=== PATIENT | male | born 1965 | race Caucasian/White ===

== ENCOUNTER 2018-03-31 19:31 | Inpatient (IN) | payer SELFPAY ==
[2018-03-31] MEDS ORDERED: Ticagrelor* 90 MG TAB PO ONE (19:49)
[2018-03-31] MEDS ORDERED: Aspirin 81 mg CHEW TAB* 81 MG TAB.CHEW PO ONE (19:49)
[2018-03-31] MEDS ORDERED: Heparin for STEMI(*) 5,000 UNITS/ML 1 ML VIAL IV ONE (19:49)
--- NOTE | 2018-03-31 19:52 | ED ---
HPI Chest Pain - HPI Summary HPI Summary: The pt is a 30 y/o male presenting to [facility] c/o of upper CP for the last 1 month worsened today afternoon while he was mowing the lawn. The CP rated 2/10 radiates to the neck and head. He notes diaphoresis, SOB, dyspnea, nausea and headaches. The pain is alleviated by sitting and aggravated by lying down. He has not been seen by his PCP for the sx. A STEMI alert was called at 194 and an ABC alert at 2000. - History of Current Complaint Chief Complaint: EDChestPainROMI Hx Obtained From: Patient, Family/Air/Ocean Export Clerk Onset/Duration: Started Weeks Ago - 4 weeks, Still Present, Worse Since - Today afternoon Timing: Intermittent Current Severity: Mild Pain Intensity: 2 Pain Scale Used: 0-10 Numeric Chest Pain Radiates: Yes Chest Pain Radiates To:: Neck, Other - Head Aggravating Factor(s): Other: - Lying down Alleviating Factor(s): Position - Sitting Associated Signs and Symptoms: Positive: Chest Pain, Headaches, Shortness of Breath, Diaphoresis, Nausea - Allergy/Home Medications Allergies/Adverse Reactions: Allergies Allergy/AdvReac Type Severity Reaction Status Date / Time Penicillins Allergy Rash Verified 03/31/18 19:37 PMH/Surg Hx/FS Hx/Imm Hx Previously Healthy: No Cardiovascular History: Reports: Hx Hypertension Denies: Hx Myocardial Infarction Musculoskeletal History: Reports: Hx Arthritis, Hx Back Problems, Hx Orthopedic Injury - shoulder Neurological History: Reports: Other Neuro Impairments/Disorders - PAIN CLINIC PATIENT - Surgical History Surgery Procedure, Year, and Place: right shoulder surgery x2 Infectious Disease History: No Infectious Disease History: Denies: Traveled Outside the [place] in Last 30 Days - Family History Known Family History: Positive: Cardiac Disease - Mother - Social History Occupation: Employed Full-time Lives: With Family Alcohol Use: Weekly Alcohol Amount: 6-10 drinks/week Substance Use Type: Reports: None Smoking Status (MU): Current Every Day Smoker Type: Cigarettes Amount Used/How Often: 1 1/2 PPD Review of Systems Positive: Skin Diaphoresis Positive: Chest Pain Respiratory: Other - Positive: Dyspnea Positive: Shortness Of Breath Positive: Nausea Positive: Headache All Other Systems Reviewed And Are Negative: Yes Physical Exam - Summary Physical Exam Summary: Appearance: The patient is well-nourished in no acute distress and in no acute pain. Skin: The pt is mildly diaphoretic, warm and dry. Skin color reflects adequate perfusion. HEENT: The head is normocephalic and atraumatic. The pupils are equal and reactive. The conjunctivae are clear and without drainage. Nares are patent and without drainage. Mouth reveals moist mucous membranes and the throat is without erythema and exudate. The external ears are intact. The ear canals are patent and without drainage. The tympanic membranes are intact. Neck: The neck is supple with full range of motion and non-tender. There are no carotid bruits. There is no neck vein distension. Respiratory: Chest is non-tender. Lungs are clear to auscultation and breath sounds are symmetrical and equal. Cardiovascular: Heart is regular rate and rhythm. There is no murmur or rub auscultated. There is no peripheral edema and pulses are symmetrical and equal. Abdomen: The abdomen is soft and non-tender. There are normal bowel sounds heard in all four quadrants and there is no organomegaly palpated. Musculoskeletal: There is no back tenderness noted. Extremities are non-tender with full range of motion. There is good capillary refill. There is no peripheral edema or calf tenderness elicited. Neurological: Patient is alert and oriented to person, place and time. The patient has symmetrical motor strength in all four extremities. Cranial nerves are grossly intact. Deep tendon reflexes are symmetrical and equal in all four extremities. Triage Information Reviewed: Yes Vital Signs On Initial Exam: Initial Vitals Temp Pulse Resp BP Pulse Ox 98.4 F 94 20 172/89 96 03/31/18 19:33 03/31/18 19:33 03/31/18 19:33 03/31/18 19:33 03/31/18 19:33 Vital Signs Reviewed: Yes Diagnostics - Vital Signs Vital Signs Temp Pulse Resp BP Pulse Ox 03/31/18 19:33 98.4 F 94 20 172/89 96 - Laboratory Result Diagrams: 03/31/18 19:50 03/31/18 19:50 Lab Statement: Any lab studies that have been ordered have been reviewed, and results considered in the medical decision making process. - Radiology CXR Radiology Interpretation Completed By: ED Physician - IMPRESSION: Atelectasis in the base of the R lung - EKG 19:38 Cardiac Rate: NL - 92 bpm EKG Interpretation: Acute inferior HI with reciprocal posterior septal changes Chest Pain Course/Dx - Course Course Of Treatment: Mr. Multani presented to the emergency department with about a half an hour of chest pain which he described as a discomfort. He was brought back to the sub-waiting room and an EKG was obtained and shown to me. His EKG showed an acute inferior STEMI, I interviewed him in the sub-waiting room and called a STEMI alert. He was mildly diaphoretic, smelled of tobacco and looked uncomfortable clutching his chest. He was brought back immediately to room 14 and placed on the monitor and was administered heparin, aspirin and noted to have frequent ectopy on the monitor. Brlynta was also ordered for him but he went into the tach and then coarse V. fib which had a torsades appearance prior to giving it. He was immediately shocked back into a sinus rhythm with frequent PVCs essentially bigeminy and while amiodarone was being administered he went into dysrhythmia again. He again responded to defibrillation and then stayed and initially a tachycardic bigeminal rhythm and the ectopy eventually went away. He was also loaded with magnesium. Dr. brandt came and took him to the [facility]. His initial troponin returned at 0.07. - Diagnoses Provider Diagnoses: Cardiac arrest, STEMI (ST elevation myocardial infarction) During the Visit The Following Alert/Code Occurred: STEMI - At 194, ABC Alert - At 2000 - Provider Notifications Discussed Care Of Patient With: Moises Pierson - Time Study Analyst Time Discussed With Above Provider: 19:50 Instructed by Provider To: MD Will See In ED - Also discussed the care of the pt with the hospitalist who agreed to admit the pt. - Critical Care Time Critical Care Time: 30-74 min Discharge - Sign-Out/Discharge Documenting (check all that apply): Patient Departure - Admit - Discharge Plan Condition: Guarded Disposition: ADMITTED TO [facility] - Billing Disposition and Condition Condition: GUARDED Disposition: Admitted to [facility] - Attestation Statements Document Initiated by Scribe: Yes Documenting Scribe: Tricia Navarro Provider For Whom Scribe is Documenting (Include Credential): Dr. Armani Marrero MD Scribe Attestation: Tricia Kelly, scribed for Dr. Armani Marrero MD on 03/31/18 at 2153. Scribe Documentation Reviewed: Yes Provider Attestation: The documentation as recorded by the scribe, Tricia Navarro accurately reflects the service I personally performed and the decisions made by me, Dr. Armani Marrero MD
[2018-03-31 20:02] LABS: ABS Basophils 0.1 10^3/ul (0-0.2); ABS Eosinophils 0.1 10^3/ul (0-0.6); ABS Lymphocytes 3.3 10^3/ul (1.0-4.8); ABS Monocytes 0.9 10^3/ul (0-0.8); ABS Neutrophils 5.8 10^3/ul (1.5-7.7); ABS Nucleated RBC 0 10^3/ul; Eosinophil % 1.1 % (0-6); Hematocrit 43 % (42-52); Lymphocyte % 32.6 % (25-47); Mean Corpuscular HGB Conc 35 g/dl (31-36); Mean Corpuscular Hemoglobin 34 pg (27-31); Mean Corpuscular Volume 96 fL (80-94); Mean Platelet Volume 7.1 um3 (7.4-10.4); Nucleated Red Blood Cells % 0.1; Platelet Count 301 10^3/ul (150-450); Red Blood Count 4.47 10^6/ul (4.00-5.40); Red Cell Distribution Width 13 % (10.5-15); White Blood Count 10.2 10^3/ul (3.5-10.8)
[2018-03-31] MEDS ORDERED: Magnesium Sulfate 2 GM IV* 2 GM/50 ML BAG ONE ×2 (20:07→20:11)
[2018-03-31 20:12] LABS: INR 0.83 (0.77-1.02)
[2018-03-31] MEDS ORDERED: Magnesium Sulfate 2 GM IV* 2 GM/50 ML BAG IVPB ONE (20:13)
[2018-03-31] MEDS ORDERED: Amiodarone 150 MG IVPREMIX* 150 MG/100 ML BAG IV ONE (20:16)
[2018-03-31 20:20] LABS: EGFR Non-African American 108.1 (>60)
[2018-03-31] MEDS ORDERED: Heparin 2 UNITS/ML IVPREMIX* 2,000 ML IV ONE (20:22)
[2018-03-31] MEDS ORDERED: Heparin(*) 1000 UNIT/ML 10 ML VIAL CATH LAB IV ONE (20:22)
[2018-03-31] MEDS ORDERED: nitroGLYCERIN DRIP* 25,000 MCG/250 ML BTL ONE (20:22)
[2018-03-31] MEDS ORDERED: VERAPAMIL 2.5 MG/ML 2 ML VIAL ** 5 mg/2 ml ONE (20:22)
[2018-03-31] MEDS ORDERED: Lidocaine 1% INJ* 10 MG/ML 30 ML SDV ONE (20:22)
[2018-03-31] MEDS: Amiodarone 150 MG IVPREMIX* 150 MG/100 ML BAG IV ONE ×2 (20:23→22:35)
[2018-03-31] MEDS ORDERED: Iohexol 350 (CONTRAST) 200 ML MDV IV ONE (20:25)
[2018-03-31] MEDS ORDERED: Morphine INJ** 4 MG/ML 1 ML CARPUJECT IV ONE (20:33)
[2018-03-31] MEDS ORDERED: Morphine INJ* 4 MG/ML 1 ML SYRINGE (NEW SYRINGE VERSION) ONE (20:36)
[2018-03-31] MEDS ORDERED: Morphine INJ* 4 MG/ML 1 ML SYRINGE (NEW SYRINGE VERSION) IV ONE (20:37)
[2018-03-31] MEDS ORDERED: fentaNYL* 50 MCG/ML 2 ML VIAL (100 MCG VIAL) ONE ×2 (20:54→21:19)
[2018-03-31] MEDS ORDERED: Midazolam* 1 MG/ML 10 ML VIAL (10 MG) ONE (20:55)
[2018-03-31] MEDS ORDERED: Nitroglycerin TAB 0.4 MG* 0.4 MG TAB SL PRN (21:49)
[2018-03-31] MEDS ORDERED: NS 0.9% 1000 ML* 400 ML IV SCH (22:00)
[2018-03-31] MEDS: Atorvastatin* 80 MG TAB PO SCH (22:23)
[2018-03-31] MEDS: Metoprolol Tartrate TAB* 25 MG PO SCH (22:23)
[2018-03-31] MEDS: Acetaminophen TAB* 325 MG PO PRN (22:24)
[2018-03-31] MEDS: Ticagrelor* 90 MG TAB PO SCH (22:24)
[2018-03-31] MEDS: Nicotine PATCH 21 MG/24 HR* PATCH TRANSDERM SCH (22:24)
[2018-03-31] MEDS ORDERED: Amiodarone DRIP* 1.8 MG/ML 200 ML IV SCH (23:30)
[2018-04-01] MEDS: Acetaminophen TAB* 325 MG PO PRN (03:53)
[2018-04-01 05:05] LABS: EGFR Non-African American 134.7 (>60)
[2018-04-01] MEDS: Metoprolol Tartrate TAB* 25 MG PO SCH ×3 (05:23→20:53)
[2018-04-01] MEDS ORDERED: Furosemide IV* 10 MG/ML 2 ML VIAL (20 MG) IV ONE ×2 (06:45→16:00)
[2018-04-01] MEDS ORDERED: Furosemide IV* 10 MG/ML 2 ML VIAL (20 MG) ONE (06:59)
--- NOTE | 2018-04-01 07:46 | RAD ---
HISTORY: CP COMPARISONS: September 25, 2014 VIEWS: 1: frontal AP view of the chest at 8:16 PM FINDINGS: LINES AND TUBES: None. CARDIOMEDIASTINAL SILHOUETTE: The cardiac silhouette is at the upper limits of normal in size. PLEURA: The costophrenic angles are sharp. No pleural abnormalities are noted. LUNG PARENCHYMA: There is patchy alveolar opacification of the right lung base. There is prominence of the central pulmonary vasculature. ABDOMEN: The upper abdomen is clear. There is no subphrenic gas. BONES AND SOFT TISSUES: No bone or soft tissue abnormalities are noted. IMPRESSION: 1. PULMONARY VASCULAR CONGESTION. 2. PATCHY RIGHT BASILAR ATELECTASIS VERSUS EARLY CONSOLIDATION. R2
--- NOTE | 2018-04-01 08:50 | PN ---
Subjective Date of Service: 04/01/18 - f/u s/p Inferoposterior STEMI Interval History: 53 year old who presented to [facility] last evening around 1999 after having 45 min episode of chest discomfort described at " ball in throat" with associated diaphoresis and nausea. Apparently for the past month he has been having accelerating symptoms historically provoked with exertion however for the past couple of days occurring at rest. A STEMI and ABC alert was called. He had refractory VT/VF requiring CPR And two rounds of defibrillation. HE had successful ROSC and was given IV amiodarone and taken urgently to the culture media laboratory assistant where he had successful KYLIE x1 to PL of Lcx with residual 60% RCA lesion that is being medically treated. LV gram revealed LVEF 55%. He was admitted to the cardiac ICU and monitored overnight. HE denies further c/o chest pain, nausea or diaphoresis. However this morning was experiencing dyspnea subsequently was given IV Lasix. He reports improvement in dyspnea and + urinary output. Of note he is c/o sternal chest pain that is tender to touch. No events on telemetry last night. Medications Active Medications: Acetaminophen (Tylenol Tab*) 650 mg PO Q4H PRN PRN Reason: HEADACHE/PAIN Last Admin: 04/01/18 03:53 Dose: 650 mg Aspirin (Aspirin 81 Mg Chew Tab*) 81 mg PO DAILY [facility] Atorvastatin Calcium (Lipitor*) 80 mg PO 1700 [facility] Last Admin: 03/31/18 22:23 Dose: 80 mg Amiodarone HCl (Nexterone 360 Mg/200 Ml Ivpremix*) 360 mg in 200 mls @ 33.333 mls/hr IV .PER RATE [facility]; Protocol Last Admin: 04/01/18 00:36 Dose: 33.333 mls/hr Metoprolol Tartrate (Lopressor Tab*) 25 mg PO Q8H [facility] Last Admin: 04/01/18 05:23 Dose: 25 mg Nicotine (Nicotine Patch 21 Mg/24 Hr*) 1 patch TRANSDERM DAILY [facility] Last Admin: 03/31/18 22:24 Dose: 1 patch Nitroglycerin (Nitroglycerin Tab 0.4 Mg*) 0.4 mg SL Q5M PRN PRN Reason: ANGINA Pneumococcal Polyvalent Vaccine (Pneumococcal Vac 23-Polyvalent*) 0.5 ml IM .ONCE ONE Stop: 04/01/18 09:01 Ticagrelor (Brilinta*) 90 mg PO BID CARLA Last Admin: 03/31/18 22:24 Dose: 90 mg Objective Vital Signs: Temp Pulse Resp BP Pulse Ox 96.6 F 66 18 120/75 97 03/31/18 22:11 04/01/18 08:00 04/01/18 08:00 04/01/18 08:00 04/01/18 08:00 Oxygen Devices in Use Now: Nasal Cannula Appearance: well nourished, well kept. NAD, A+O x3 Eyes: No Scleral Icterus, PERRLA Ears/Nose/Mouth/Throat: NL Teeth, Lips, Gums, Clear Oropharnyx, Mucous Membranes Moist Neck: NL Appearance and Movements; NL JVP, Trachea Midline, No Thyroid Enlargement, Masses Respiratory: Symmetrical Chest Expansion and Respiratory Effort, - - + inspiratory crackles in right lower lobe Cardiovascular: NL Sounds; No Murmurs; No JVD, RRR - no gallop or rub, No Edema Abdominal: No Hepatosplenomegaly, - - bowel sounds are active X4, abdomen is distended non tender. Extremities: No Edema - 2+ right radial pulse palpated. cap refill < 3 seconds. TR band in place Skin: No Rash or Ulcers Neurological: Alert and Oriented x 3, NL Muscle Strength and Tone Lines/Tubes/Other Access: Clean, Dry and Intact Peripheral IV - left and right AC., Clean, Dry and Intact Other Access - TR band in place right radial access( per nurse deflated) Laboratory Results: 03/31/18 19:50 04/01/18 03:50 INR (Anticoag Therapy) 0.83 (0.77-1.02) 03/31/18 19:50 APTT 28.5 seconds (26.0-36.3) 03/31/18 19:50 Total Bilirubin 0.40 mg/dL (0.2-1.0) 03/31/18 19:50 AST 28 U/L (13-39) 03/31/18 19:50 ALT 37 U/L (7-52) 03/31/18 19:50 Alkaline Phosphatase 96 U/L (34-104) 03/31/18 19:50 CK-MB (CK-2) 245.0 ng/mL (0.6-6.3) H 04/01/18 03:50 B-Natriuretic Peptide 19 pg/mL (-100) 03/31/18 19:50 Total Protein 7.1 g/dL (6.4-8.9) 03/31/18 19:50 Albumin 4.6 g/dL (3.2-5.2) 03/31/18 19:50 Globulin 2.5 g/dL (2-4) 03/31/18 19:50 Albumin/Globulin Ratio 1.8 (1-3) 03/31/18 19:50 Triglycerides 707 mg/dL 03/31/18 19:50 Cholesterol 260 mg/dL 03/31/18 19:50 LDL Cholesterol mg/dL 03/31/18 19:50 HDL Cholesterol 40.7 mg/dL 03/31/18 19:50 03/31/18 19:50 Troponin I 0.07 H* Diagnostic Imaging: Telemetry was reviewed. NSR rates 60-70's no pauses, ventricular ectopy or arrhythmias overnight. This mornings EKG is pending. EKG Data: todays is pending. Assessment/Plan 1. S/P Acute Inferoposterior STEMI s/p successful DESX1 to PL branch of Lcx with known residual 60% RCA lesion. LVEF 55%. No recurrent c/o angina. On ASA 81mg/day, Lipitor 80mg PO QHS, Brilinta 90mg PO BID and Lopressor 25mg PO TID. Will consult social work for medication and insurance assistance. Check echo today. He will need 1 year of DAPT uninterrupted given STEMI presentation. 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 Will continue gentle diuresis with lasix 20mg IV BID given dyspnea and + crackles on lower bases. 2. s/p Cardiac Arrest; due to above #1; Per ED report patient had VT, fine VF had 5 minutes of CPR followed by defibrillation x2. and was on IV Amio. he underwent successful revascularization with no further arrhythmias on telemetry. given reproducible sternal chest pain with palpation. LVEF 55% does not need lifevest. 3. Hyperlipdemia; On Lipitor 80mg PO QHS. I discussed in great detail with patient about the importance of reducing ETOH intake and monitoring carb and sugar intake given elevated triglycerides. HE will need repeat panel in 6-8 weeks time for further evaluation. 4. On going tobacco abuse; reports consuming 2+ PPD for the past 40 years. I educated patient and partner on the importance of smoking cessation for overall cardiovascular benefits. 5. Alcoholism; Patient reports consuming 7-8 beers a day and "social" shots of [place]equ[place]. There is no clinical evidence of DT. HR is 60-70. HE is to f/u with PCP Dr. Aabrca to discuss how to safely stop drinking. 6. Disposition; pending course patient is full code. Will discuss with Dr. Pierson about possibly transferring patient to telemetry floor later today. Attending: Moises Pierson
[2018-04-01] MEDS ORDERED: Pneumococcal *Vac Polyvalent 0.5 ML VIAL IM ONE (09:00)
[2018-04-01] MEDS ORDERED: Perflutren Lipid Microsphere* 3 ML VIAL ONE (09:53)
[2018-04-01] MEDS: Ticagrelor* 90 MG TAB PO SCH ×2 (10:30→20:53)
[2018-04-01] MEDS: Aspirin 81 mg CHEW TAB* 81 MG TAB.CHEW PO SCH (10:30)
[2018-04-01] MEDS: Nicotine PATCH 21 MG/24 HR* PATCH TRANSDERM SCH (10:36)
--- NOTE | 2018-04-01 11:19 | ECHO ---
Patient: MERVAT PEREZ [facility] Rec#: [id number] : 1965 Date: 04/01/2018 Age: 53y Height: 180 cm / 70.9 in Weight: 105.2 kg / 231.9 lbs Sex: M BSA: 2.24 Room#: [facility] Admit Date#: 03/31/2018 Type: Inpatient Referring: Monalisa Cannon Reading: Yakov Noel MD Insurance Agency Manager: Vani Ambriz RDCS CC: Viktor Abarca MD Transthoracic Echocardiogram Indication: Myocardial Infarction. BP: 120/75 HR: 61 Rhythm: NSR Findings History: Smoker, HTN, acute inferior SD 03/31/18. Technical Comments: The study is technically limited due to poor acoustic windows. Completed at 1040. Left Ventricle: The left ventricular chamber size is normal. Mild to moderate concentric left ventricular hypertrophy is observed. There is a focal wall motion abnormality present. There is mildly decreased left ventricular systolic function. The estimated ejection fraction is 45-50%. There is no consistent Doppler evidence of clinically significant diastolic dysfunction. The mid anterolateral, mid inferolateral, apical lateral, and apical inferior wall segments are hypokinetic (score 2). Overall wallmotion score index is 2.00 Left Atrium: The left atrium is mildly dilated. Right Ventricle: Moderator Band present. The right ventricular cavity size is normal. The right ventricular global systolic function is low normal. Right Atrium: The right atrium is mildly dilated. Aortic Valve: The aortic valve is trileaflet. The aortic valve leaflets are mildly thickened. There is a trace of aortic regurgitation. There is no evidence of aortic stenosis. Mitral Valve: The mitral valve leaflets are mildly thickened. There is trace to mild mitral regurgitation. There is no evidence of mitral stenosis. Tricuspid Valve: The tricuspid valve leaflets are normal. There is trace tricuspid regurgitation. Unable to estimate the right ventricular systolic pressure. There is no tricuspid stenosis. Pulmonic Valve: The pulmonic valve appears normal. There is a trace pulmonic regurgitation. There is no pulmonic stenosis. Pericardium: There is no significant pericardial effusion. A pericardial fat pad is visualized. Aorta: There is no dilatation of the ascending aorta. There is no dilatation of the aortic arch. The aortic root is normal in size. Pulmonary Artery: The main pulmonary artery is not well visualized. Venous: The inferior vena cava is dilated. There is a greater than 50% respiratory change in the inferior vena cava dimension. Contrast: Definity was used to optimize study. 3.5 mL of diluted Difinity were utilized. Intravenous contrast was used to enhance endocardial border definition. Summary: There was not any prior study for comparison. Conclusions Mild to moderate concentric left ventricular hypertrophy is observed. There is mildly decreased left ventricular systolic function. The estimated ejection fraction is 45-50%. The mid anterolateral, mid inferolateral, apical lateral, and apical inferior wall segments are hypokinetic (score 2). The right ventricular global systolic function is low normal. There is a trace of aortic regurgitation. There is trace to mild mitral regurgitation. There is trace tricuspid regurgitation. Unable to estimate the right ventricular systolic pressure. There is no significant pericardial effusion. Measurements Name Value Normal Range RVIDd (AP) 2D 3.1 cm (0.9 - 2.6) RVDdMajor (2D) 3.9 cm (2.2 - 4.4) RAd ISD 4CH 5.3 cm (3.4 - 4.9) RA (A4C)W 4.9 cm (2.9 - 4.6) IVSd (2D) 1.3 cm (0.6 - 1) LVPWd (2D) 1.3 cm (0.6 - 1) LVIDd (2D) 4.6 cm (3.6 - 5.4) LVIDs (2D) 3.5 cm - LV FS (2D) 24 % (25 - 45) Aortic Annulus 1.8 cm (1.4 - 2.6) Ao root diameter (2D) 3 cm (2.1 - 3.5) Ascending Ao 3.3 cm (2.1 - 3.4) Aortic arch 2.4 cm (1.8 - 3.4) LA dimension (AP) 2D 3.9 cm (2.3 - 3.8) LAd ISD 4CH 5.5 cm (2.9 - 5.3) LA ISD 4CH W 4.5 cm (2.5 - 4.5) Name Value Normal Range LA ESV BP (A/L) index 31 ml/m2 - Name Value Normal Range MV E-wave Vmax 1.1 m/sec - MV deceleration time 180 msec - MV A-wave Vmax 0.6 m/sec - LV septal e' Vmax 0.08 m/sec - LV lateral e' Vmax 0.09 m/sec - LV E:e' septal ratio 13.75 ratio - LV E:e' lateral ratio 12.22 ratio - Name Value Normal Range AV Vmax 1.3 m/sec - AV VTI 25 cm - AV peak gradient 7 mmHg - AV mean gradient 3 mmHg - LVOT Vmax 1.2 m/sec - LVOT VTI 23.4 cm - LVOT peak gradient 6 mmHg - LVOT mean gradient 2 mmHg - JACKSON Vmax 1 m/sec - Name Value Normal Range IVC diameter 2.4 cm - Name Value Normal Range PV Vmax 0.8 m/sec - PV peak gradient 3 mmHg - Wallmotion BAS Not Seen BA Not Seen BAL Not Seen ALAN Not Seen BI Not Seen BIS Not Seen MAS Not Seen MA Not Seen MAL Hypokinetic MIL Hypokinetic SD Not Seen MIS Not Seen Not Seen AA Not Seen AL Hypokinetic AI Hypokinetic APEX Not Seen
[2018-04-01] MEDS ORDERED: Ibuprofen TAB* 400 MG PO PRN (16:20)
[2018-04-01] MEDS: Famotidine TAB* 20 MG PO SCH (17:02)
[2018-04-01] MEDS: Atorvastatin* 80 MG TAB PO SCH (17:02)
[2018-04-01] MEDS: Metoprolol Tartrate TAB* 100 MG TAB PO SCH (20:53)
--- NOTE | 2018-04-01 21:06 | HP ---
CC: Dr. Abarca * HISTORY AND PHYSICAL: DATE OF ADMISSION: 03/31/18 PRIMARY CARE PHYSICIAN: Dr. Abarca. HISTORY OF PRESENT ILLNESS: A 53-year-old male with history of hypertension presenting to the ER with inferior wall ST elevation infarct. He has no previous cardiac history. For the past month, he has had fairly typical angina, culminating in class 4 angina with rest pain, some episodes lasted up to an hour. He did not seek medical attention. On the day of admission, he had the onset of severe chest pain radiating into both arms and up into his neck and the side of his face accompanied by profuse diaphoresis. He presented to the ER where EKG at [address] elevation with reciprocal ST depression in V1 through V3. In the ER, he had VF arrest and required brief CPR and defibrillation with zoroastrian of spontaneous rhythm. He was then brought emergently to the analytical lab technician, still complaining of moderate chest discomfort. He has no history of heart failure symptoms, palpitations, or syncope. PAST MEDICAL HISTORY: Hypertension, on Norvasc. PRE-HOSPITAL MEDICATIONS: 1. Ibuprofen. 2. Norvasc. ALLERGIES: None to medications. FAMILY HISTORY: Positive for premature coronary artery disease. SOCIAL HISTORY: He is a 2-pack per day smoker. He is . REVIEW OF SYSTEMS: General: No weight loss. No fevers. 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 GI: No history of peptic ulcer disease or bleeding. Musculoskeletal: He does have chronic back pain, takes several ibuprofen daily. Circulatory: No history of claudication. Endocrine: No history of diabetes. Remainder all negative. PHYSICAL EXAMINATION GENERAL: In the ER, he was complaining of moderate chest discomfort, with radiation into his face and his jaw. VITAL SIGNS: Blood pressure 172/89, heart rate in the 90s sinus rhythm. He had received IV amiodarone post defibrillation. NECK: JVP normal. Carotids normal. No bruits. No thyromegaly. HEENT: Normal without xanthelasma, scleral injection, or jaundice. EOMs normal. Cranial nerves grossly intact. LUNGS: Clear to percussion and auscultation. CARDIAC: RV and apex not palpable, normal S1, S2, no gallop, murmur, or rub. ABDOMEN: Obese, nontender. No bruit, liver and aorta not palpable. No masses. Femoral pulses 2+. No bruits. Radial pulses 2+. EXTREMITIES: Pedal pulses normal. No cyanosis, clubbing, or edema. PSYCH: Oriented and appropriate. LABORATORY/DIAGNOSTIC DATA: EKG as above. Hemoglobin 15, MCV increased at 96 , normal platelet count at 301,000, normal electrolytes, creatinine 0.75. Random blood sugar 115. Troponin 0.07. Cholesterol high at 260 with triglycerides 707, LDL 139, HDL 40.7. Chest x-ray: Portable film without acute infiltrate. IMPRESSION: 1. Acute inferior wall ST-elevation infarct with ventricular fibrillation arrest in the ER with successful resuscitation and zoroastrian of spontaneous circulation. He underwent emergent catheterization. 2. History of hypertension, on Norvasc. 3. Hyperlipidemia, probably at least in part due to alcohol use with high triglycerides and heavy beer consumption. 4. Tobacco use. We will encourage him not to resume smoking. 5. Chronic back pain. He uses a fair amount of nonsteroidals, we will place him on gastric protection. [id number]/[facility] #: [id number] [facility]ALTHBakari
[2018-04-02] MEDS: Famotidine TAB* 20 MG PO SCH (08:49)
[2018-04-02] MEDS: Ticagrelor* 90 MG TAB PO SCH ×2 (08:50→20:49)
[2018-04-02] MEDS: Metoprolol Tartrate TAB* 100 MG TAB PO SCH ×2 (08:50→20:49)
[2018-04-02] MEDS: Aspirin 81 mg CHEW TAB* 81 MG TAB.CHEW PO SCH (08:50)
[2018-04-02] MEDS: Nicotine PATCH 21 MG/24 HR* PATCH TRANSDERM SCH (08:51)
[2018-04-02 10:03] LABS: EGFR Non-African American 121.1 (>60)
[2018-04-02] MEDS: Lisinopril TAB* 5 MG PO SCH (10:11)
--- NOTE | 2018-04-02 11:04 | PN ---
Subjective Date of Service: 04/02/18 - s/p inferolateral STEMI 03/31/2018 Interval History: no events last night. Patient reports now right sided rib pain in addition to sternal pain that is reproducible with palpation. Denies any c/o angina since presentation on 03/31/2018. No c/o SOB, dizziness, palpitations, edema. He has been OOB to chair with no issues. Medications Active Medications: Acetaminophen (Tylenol Tab*) 650 mg PO Q4H PRN PRN Reason: HEADACHE/PAIN Last Admin: 04/01/18 03:53 Dose: 650 mg Aspirin (Aspirin 81 Mg Chew Tab*) 81 mg PO DAILY [facility] Last Admin: 04/02/18 08:50 Dose: 81 mg Atorvastatin Calcium (Lipitor*) 80 mg PO 1700 [facility] Last Admin: 04/01/18 17:02 Dose: 80 mg Famotidine (Pepcid Tab*) 20 mg PO DAILY [facility] Last Admin: 04/02/18 08:49 Dose: 20 mg Ibuprofen (Motrin Tab*) 400 mg PO Q8H PRN PRN Reason: PAIN Last Admin: 04/01/18 17:01 Dose: 400 mg Lisinopril (Prinivil Tab*) 2.5 mg PO DAILY [facility] Last Admin: 04/02/18 10:11 Dose: 2.5 mg Metoprolol Tartrate (Lopressor Tab*) 50 mg PO BID [facility] Last Admin: 04/02/18 08:50 Dose: 50 mg Nicotine (Nicotine Patch 21 Mg/24 Hr*) 1 patch TRANSDERM DAILY [facility] Last Admin: 04/02/18 08:51 Dose: 1 patch Nitroglycerin (Nitroglycerin Tab 0.4 Mg*) 0.4 mg SL Q5M PRN PRN Reason: ANGINA Ticagrelor (Brilinta*) 90 mg PO BID [facility] Last Admin: 04/02/18 08:50 Dose: 90 mg Objective Vital Signs: Temp Pulse Resp BP Pulse Ox 98.3 F 64 19 120/63 97 04/02/18 08:04 04/02/18 08:04 04/02/18 08:04 04/02/18 08:04 04/02/18 08:04 Oxygen Devices in Use Now: None Appearance: well nourished, well kept. NAD, A+O x3 Eyes: No Scleral Icterus, PERRLA Ears/Nose/Mouth/Throat: NL Teeth, Lips, Gums, Clear Oropharnyx, Mucous Membranes Moist Neck: NL Appearance and Movements; NL JVP, Trachea Midline, No Thyroid Enlargement, Masses Respiratory: Symmetrical Chest Expansion and Respiratory Effort, - - + inspiratory crackles in right lower lobe Cardiovascular: NL Sounds; No Murmurs; No JVD, RRR - no gallop or rub, No Edema Abdominal: No Hepatosplenomegaly, - - bowel sounds are active X4, abdomen is distended non tender. Extremities: No Edema - 2+ right radial pulse palpated. cap refill < 3 seconds. [address] band in place Skin: No Rash or Ulcers Neurological: Alert and Oriented x 3, NL Muscle Strength and Tone Lines/Tubes/Other Access: Clean, Dry and Intact Peripheral IV - left and right AC. Laboratory Results: 03/31/18 19:50 04/02/18 09:40 INR (Anticoag Therapy) 0.83 (0.77-1.02) 03/31/18 19:50 APTT 28.5 seconds (26.0-36.3) 03/31/18 19:50 Total Bilirubin 0.40 mg/dL (0.2-1.0) 03/31/18 19:50 AST 28 U/L (13-39) 03/31/18 19:50 ALT 37 U/L (7-52) 03/31/18 19:50 Alkaline Phosphatase 96 U/L (34-104) 03/31/18 19:50 CK-MB (CK-2) 202.3 ng/mL (0.6-6.3) H 04/01/18 10:30 B-Natriuretic Peptide 19 pg/mL (-100) 03/31/18 19:50 Total Protein 7.1 g/dL (6.4-8.9) 03/31/18 19:50 Albumin 4.6 g/dL (3.2-5.2) 03/31/18 19:50 Globulin 2.5 g/dL (2-4) 03/31/18 19:50 Albumin/Globulin Ratio 1.8 (1-3) 03/31/18 19:50 Triglycerides 707 mg/dL 03/31/18 19:50 Cholesterol 260 mg/dL 03/31/18 19:50 LDL Cholesterol mg/dL 03/31/18 19:50 HDL Cholesterol 40.7 mg/dL 03/31/18 19:50 03/31/18 19:50 Troponin I 0.07 H* Laboratory Last Values WBC 10.2 10^3/ul (3.5-10.8) 03/31/18 19:50 RBC 4.47 10^6/ul (4.00-5.40) 03/31/18 19:50 Hgb 15.0 g/dl (14.0-18.0) 03/31/18 19:50 Hct 43 % (42-52) 03/31/18 19:50 MCV 96 fL (80-94) H 03/31/18 19:50 MCH 34 pg (27-31) H 03/31/18 19:50 MCHC 35 g/dl (31-36) 03/31/18 19:50 RDW 13 % (10.5-15) 03/31/18 19:50 Plt Count 301 10^3/ul (150-450) 03/31/18 19:50 MPV 7.1 um3 (7.4-10.4) L 03/31/18 19:50 Neut % (Auto) 56.5 % (38-83) 03/31/18 19:50 Lymph % (Auto) 32.6 % (25-47) 03/31/18 19:50 Sunflower % (Auto) 9.0 % (0-7) H 03/31/18 19:50 Eos % (Auto) 1.1 % (0-6) 03/31/18 19:50 Baso % (Auto) 0.8 % (0-2) 03/31/18 19:50 Absolute Neuts (auto) 5.8 10^3/ul (1.5-7.7) 03/31/18 19:50 Absolute Lymphs (auto) 3.3 10^3/ul (1.0-4.8) 03/31/18 19:50 Absolute Monos (auto) 0.9 10^3/ul (0-0.8) H 03/31/18 19:50 Absolute Eos (auto) 0.1 10^3/ul (0-0.6) 03/31/18 19:50 Absolute Basos (auto) 0.1 10^3/ul (0-0.2) 03/31/18 19:50 Absolute Nucleated RBC 0 10^3/ul 03/31/18 19:50 Nucleated RBC % 0.1 03/31/18 19:50 INR (Anticoag Therapy) 0.83 (0.77-1.02) 03/31/18 19:50 APTT 28.5 seconds (26.0-36.3) 03/31/18 19:50 POC Activ Clotting Time 221 seconds 03/31/18 21:26 Sodium 134 mmol/L (135-145) L 04/02/18 09:40 Potassium 3.9 mmol/L (3.5-5.0) 04/02/18 09:40 Chloride 102 mmol/L (101-111) 04/02/18 09:40 Carbon Dioxide 22 mmol/L (22-32) 04/02/18 09:40 Anion Gap 10 mmol/L (2-11) 04/02/18 09:40 BUN 17 mg/dL (6-24) 04/02/18 09:40 Creatinine 0.68 mg/dL (0.67-1.17) 04/02/18 09:40 Est GFR ( Amer) 146.5 (>60) 04/02/18 09:40 Est GFR (Non-Af Amer) 121.1 (>60) 04/02/18 09:40 BUN/Creatinine Ratio 25.0 (8-20) H 04/02/18 09:40 Glucose 139 mg/dL (70-100) H 04/02/18 09:40 Hemoglobin A1c 6.1 % (4.0-5.6) H 03/31/18 19:50 Lactic Acid 1.5 mmol/L (0.5-2.0) 03/31/18 19:50 Calcium 9.1 mg/dL (8.6-10.3) 04/02/18 09:40 Total Bilirubin 0.40 mg/dL (0.2-1.0) 03/31/18 19:50 AST 28 U/L (13-39) 03/31/18 19:50 ALT 37 U/L (7-52) 03/31/18 19:50 Alkaline Phosphatase 96 U/L (34-104) 03/31/18 19:50 Total Creatine Kinase 1836 U/L (10-223) H 04/01/18 10:30 CK-MB (CK-2) 202.3 ng/mL (0.6-6.3) H 04/01/18 10:30 Troponin I 0.07 ng/mL (<0.04) H* 03/31/18 19:50 B-Natriuretic Peptide 19 pg/mL (-100) 03/31/18 19:50 Total Protein 7.1 g/dL (6.4-8.9) 03/31/18 19:50 Albumin 4.6 g/dL (3.2-5.2) 03/31/18 19:50 Globulin 2.5 g/dL (2-4) 03/31/18 19:50 Albumin/Globulin Ratio 1.8 (1-3) 03/31/18 19:50 Triglycerides 707 mg/dL 03/31/18 19:50 Cholesterol 260 mg/dL 03/31/18 19:50 LDL Cholesterol mg/dL 03/31/18 19:50 LDL Cholesterol Direct 139 mg/dL 03/31/18 19:50 HDL Cholesterol 40.7 mg/dL 03/31/18 19:50 Diagnostic Imaging: Telemetry was reviewed. NSR rates 60-70's no pauses, no ventricular ectopy or arrhythmias overnight. Todays EKG was reviewed. NSR rate 68 with t wave inversion in infero- lateral leads. Assessment/Plan 1. S/P Acute Inferoposterior STEMI s/p successful DESX1 to PL branch of Lcx with known residual 60% RCA lesion. LVEF 40-45% on 04/01/2018 echo. No recurrent c/o angina. On ASA 81mg/day, Lipitor 80mg PO QHS, Brilinta 90mg PO BID and Lopressor 25mg PO TID. Awaiting social work input for medication and insurance assistance. He will need 1 year of DAPT uninterrupted given STEMI presentation. 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 2. s/p Cardiac Arrest; due to above #1; Per ED report patient had VT, fine VF had 5 minutes of CPR followed by defibrillation x2. and was on IV Amio. he underwent successful revascularization with no further arrhythmias on telemetry. given reproducible sternal chest pain with palpation. LVEF 55% does not need lifevest. 3. Hyperlipdemia; On Lipitor 80mg PO QHS. I discussed in great detail with patient about the importance of reducing ETOH intake and monitoring carb and sugar intake given elevated triglycerides. HE will need repeat panel in 6-8 weeks time for further evaluation. 4. On going tobacco abuse; reports consuming 2+ PPD for the past 40 years. I educated patient and partner on the importance of smoking cessation for overall cardiovascular benefits. 5. Alcoholism; Patient reports consuming 7-8 beers a day and "social" shots of [place]equ[place]. There is no clinical evidence of DT. HR is 60-70. HE is to f/u with PCP Dr. Abarca to discuss how to safely stop drinking. 6. Moderate LV Dysfunction' LVEF 40-45% etiology is ischemia. NYHA class 2; euvolemic on exam today. no futher c/o dyspnea since IV lasix yesterday. On Lopressor therapy. Will add lisinopril 2.5mg PO daily and convert lopressor to Toprol therapy. 6. Disposition; pending course patient is full code. Will observe on telemetry another night. Pending no complications tenative discharge 04/03/2018.
--- NOTE | 2018-04-02 12:31 | RAD ---
INDICATION: Status post chest compressions evaluate for rib or sternal fracture. COMPARISON: Comparison is made with prior chest x-ray study from March 31, 2018. TECHNIQUE: 9 views of the both ribs and dual-energy PA views of the chest were obtained. FINDINGS: There is a nondisplaced fracture of the right anterior seventh rib. The sternum is not well seen on any of the images. The heart is within normal limits in size. The lungs are clear. There is no evidence for pneumothorax or pleural effusion. IMPRESSION: 1. THERE IS A NONDISPLACED FRACTURE OF THE ANTERIOR RIGHT SEVENTH RIB. 2. NO EVIDENCE FOR PNEUMOTHORAX. 3. THE STERNUM IS NOT SEEN ON THE IMAGES OBTAINED. IF THERE IS CONCERN FOR STERNAL FRACTURE RECOMMEND AN X-RAY OR CT OF THE STERNUM FOR FURTHER EVALUATION.
--- NOTE | 2018-04-02 14:11 | RAD ---
Indication: Post CPR. Assess for sternal fracture. Comparison: September 25, 2014 PA and lateral chest views. Technique: AP and oblique views of the sternum. Report: The manubrium and body of the sternum are intact without evidence for fracture or pathologic lesions. The soft tissue contours are normal. IMPRESSION: #. No sternal fracture or articular malalignment evident.
[2018-04-02] MEDS: HYDROcodone/ACETAMIN 5-325 MG* 1 TAB PO PRN ×2 (14:17→20:50)
[2018-04-02] MEDS: Atorvastatin* 80 MG TAB PO SCH (16:40)
[2018-04-03] MEDS: HYDROcodone/ACETAMIN 5-325 MG* 1 TAB PO PRN (04:08)
[2018-04-03] MEDS: Ticagrelor* 90 MG TAB PO SCH (09:11)
[2018-04-03] MEDS: Metoprolol Tartrate TAB* 100 MG TAB PO SCH (09:11)
[2018-04-03] MEDS: Famotidine TAB* 20 MG PO SCH (09:12)
[2018-04-03] MEDS: Lisinopril TAB* 5 MG PO SCH (09:12)
[2018-04-03] MEDS: Aspirin 81 mg CHEW TAB* 81 MG TAB.CHEW PO SCH (09:12)
[2018-04-03] MEDS: Nicotine PATCH 21 MG/24 HR* PATCH TRANSDERM SCH (09:13)
[2018-04-03 12:53] VITALS: BP 101/50
--- NOTE | 2018-04-04 01:00 | DS ---
CC: Dr. Fco Cadena; Dr. Abarca * DISCHARGE SUMMARY: DATE OF ADMISSION: 03/31/18 DATE OF DISCHARGE: Tentative date of discharge pending no complications, . DICTATING FOR: Dr. Pierson, Cardiology.* (DICTATED BY INDIA BLACKWOOD NP) PRIMARY PHYSICIAN: Dr. Abarca. PRIMARY FUR PLUCKER: Dr. Fco Cadena. ADMITTING DIAGNOSES: 1. Acute inferolateral ST elevation myocardial infarction. 2. Newly diagnosed ischemic cardiomyopathy. 3. Moderate reduction in systolic dysfunction. 4. History of hyperlipidemia. 5. History of hypertension. 6. Tobacco abuse. DISCHARGE DIAGNOSES: 1. Status post acute inferolateral STEMI resulting in drug-eluting stent placement to left circumflex with known residual 60% RCA lesion, on aspirin, Brilinta, high- density statin, and beta-blockade therapy. 2. Ischemic cardiomyopathy. LVEF 45%-50%. NYHA functional class 1. Compensated on physical exam on lisinopril 2.5 mg p.o. daily in addition to Lopressor therapy due to above #1. 3. History of hyperlipidemia. 4. History of hypertension. 5. History of tobacco abuse. HISTORY OF PRESENT ILLNESS: This is a pleasant 53-year-old gentleman with a known history of hypertension, moderate alcohol abuse, hyperlipidemia, who presented to [facility] Emergency room on 03/31/18 around 7:30 p.m. after having a 45- minute period of sternal chest pain with associated diaphoresis. Apparently for the past month, he had been having new onset complaints of exertional chest discomfort, however, for the last 7 to 14 days, it has been accelerating not only duration but frequency and started to occur at rest, which is what happened on 03/31/18. Within 5 minutes of being evaluated in the emergency department, he had a witnessed cardiac arrest with VT and fine VF per ER record. The patient required CPR and 2 rounds of defibrillation. He had successful ROSC. He was taken urgently to the lab director by Dr. Pierson. Left heart catheterization revealed an LVEF of 55%. Left main and LAD were normal. Circumflex posterolateral branch had 95% stenosis. RCA mid 60% stenosis. He underwent successful drug-eluting stent placement to posterolateral branch of left circumflex. Residual 60% RCA lesion was treated medically. He was admitted to the cardiac ICU and monitored overnight on . Initial troponin was 0.07. Total CK peaked at 2394. CK-MB peaked at 245 on 04/01/18. He was initially placed on IV amiodarone after cardiac arrest, however, on the morning of 04/01/18, amiodarone was discontinued. He was observed on telemetry. He has not had any further ventricular ectopy or arrhythmias. He denies any recurrent complaints of anginal equivalent since presentation. Echocardiogram was done on 04/01/18 and revealed an LVEF of 45%-50 % with moderate left ventricular hypertrophy. No evidence of . Trace aortic insufficiency, mild mitral regurgitation, trace tricuspid insufficiency. There was no pericardial effusion. The patient was transferred to telemetry on the evening of 04/01/18. The morning of 04/02/18, he had ongoing complaints of reproducible sternal pain with movement of torso in palpation. In addition, the right lateral region of his ribs are very tender, reproducible with palpation and movement. Subsequently, he underwent rib series to rule out rib fracture due to requiring CPR. There was evidence of a nondisplaced fracture involving the anterior right seventh rib. There was no pneumothorax. There was no pericardial effusion on echocardiogram. Sternum imaging was negative for any type of sternal fracture or articular malignant evident. Last BMP was on . Sodium 134, potassium 3.9, chloride 102, carbon dioxide 22, BUN 17, creatinine 0.68, glucose 139. Again, upon admission, lipid panel was checked. LDL direct was 139, HDL 40.7, triglycerides 707, total cholesterol 260. He is stable today, offers no complaints. No further arrhythmias or ventricular ectopy since presentation 03/31/18. He is to go home today on a low-cholesterol , low-fat, low-carb diet. No driving for 2 weeks. No lifting anything greater than 5 to 10 pounds for 7 days. No heavy lifting until further direction from machine deburrer in followup. 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 He is to be further risk stratified for clearance for resumption of normal activity and activity for work in followup after Lexiscan stress test, which is to be done in the next 7 to 10 days. Our office will call the patient with date and time of stress test. He is to follow up with Dr. Kasper on 04/10/18 at 2:40 p.m. at our [facility] office for a groin check. The patient will need a followup BMP on 04/10/18 due to initiation of an SCOTT inhibitor. He will also need to repeat lipid panel and LFTs in 6 to 8 weeks' time due to initiation of high-density statin therapy. DISCHARGE INSTRUCTIONS: Information was reviewed with the patient. The patient had a long conversation with myself about the importance of smoking cessation for overall cardiovascular benefit. He is to be given a 7-day supply of nicotine replacement and is to follow up with PCP within 7 days for further prescription refills of the nicotine patch. I discussed in great length the importance of dual antiplatelet therapy to be uninterrupted for 1 year's time given acute inferoposterior ST elevation myocardial infarction. The patient is on PPI therapy due to dual antiplatelet therapy. Dr. Pierson has personally seen and examined the patient and agrees the above assessment and plan. Total discharge time was 30 minutes. Prescription for medications were sent to [facility]. The patient was given a 30-day free sample of 90 mg of Brilinta tablet to be taken 1 tablet twice a day. Social work was also consulted during the stay to help with assistance given the patient's current unemployed status. Please note he is in between job, however, he is supposed to start back state today with restrictions listed above. INDIA BLACKWOOD NP [id number]/[facility] #: [id number] MARIO ALBERTO
--- NOTE | 2018-04-05 05:39 | CATH ---
CC: Dr. Moises Pierson STENT REPORT: DATE OF PROCEDURE: 03/31/18 PRIMARY CARE PHYSICIAN: Dr. Abarca. AUTO SERVICE ADVISOR: PROCEDURES: Right radial artery access, bilateral selective coronary cineangiography, left heart catheterization, left ventriculography. HISTORY: A 53-year-old male presenting with acute inferior wall ST elevation infarct. PROCEDURE ACCESS: Right radial artery sheath 6F slender. MEDICATIONS: 1. Subcutaneous lidocaine. 2. IV Versed. 3. IV fentanyl. 4. Radial cocktail with nitroglycerin 300 mcg and verapamil 3 mg IA. 5. IV heparin 4000 units, 3000 units, 2000 units. 6. IC nitroglycerin 200 mcg. DIAGNOSTIC CATHETER: 5-F TIG4, 5-F pigtail. GUIDING CATHETER: 6-F VL3.5, wire 14 BMW. HEMODYNAMICS: Initial AO 123/72. LV post revascularization 101/5-22, no aortic valve gradient on pullback. ANGIOGRAPHY: Left main: The left main is relatively short, large, has no stenosis. LAD: The LAD is moderate, extends to the apex, it supplies a large bifurcated diagonal, the mid LAD has very mild systolic compression. The LAD has no significant stenosis. Circumflex: The circumflex is not dominant, is large, has a [id number] ramus, 2 small marginals and a small posterolateral and then has a 95% stenosis with distal PETER-1 flow involving the large posterolateral branch. RCA: The RCA is moderate, dominant, with a mid smooth 50% to 60% stenosis, which may not be hemodynamically significant. The PDA is moderate followed by 2 small posterolateral branches. After revascularization of the circumflex with placement of a 3 x 16 Synergy drug- eluting stent, post dilated with 3 x 15 NC balloon to 20 atmospheres 30 seconds. There is no residual stenosis, distal flow is PETER-3. The large posterolateral branch supplies most of the obtuse margin. LV gram: There is mild anteroapical hypokinesis, somewhat decreased long axis shortening, estimated LVEF 55%. CONCLUSION: 1. Single-vessel disease circumflex posterolateral, excellent angiographic results with drug-eluting stent placement in the setting of an acute inferior wall ST elevation infarct. 2. Preserved LVEF with mild regional wall motion abnormality. 3. Successful right radial artery access. 4. Normal left-sided hemodynamics aside from elevated LVEDP. [id number]/[facility] #: [id number] [facility]ENTERBakari
== END 2018-04-03 14:08 | disposition home or self-care (01) | DRG 246 ==
LOC: ED 19:31 → ICU 21:53 → MEDTELE 04-01 16:09
PROVIDERS: ADMIT Internal Medicine Cardiovascular Disease; ATTEND Internal Medicine Cardiovascular Disease
PROC: 027034Z Dilation of Coronary Artery, One Artery with Drug-eluting Intraluminal Device, Percutaneous Approach (ICD-10-PCS; 2018-03-31)
PROC: 4A023N7 Measurement of Cardiac Sampling and Pressure, Left Heart, Percutaneous Approach (ICD-10-PCS; 2018-03-31)
PROC: B2151ZZ Fluoroscopy of Left Heart using Low Osmolar Contrast (ICD-10-PCS; 2018-03-31)
PROC: 5A12012 Performance of Cardiac Output, Single, Manual (ICD-10-PCS; 2018-03-31)
PROC: B2111ZZ Fluoroscopy of Multiple Coronary Arteries using Low Osmolar Contrast (ICD-10-PCS; principal; 2018-03-31 20:45)
DX: I21.19 ST elevation (STEMI) myocardial infarction involving other coronary artery of inferior wall (principal); I46.2 Cardiac arrest due to underlying cardiac condition; S22.31XA Fracture of one rib, right side, initial encounter for closed fracture; I49.01 Ventricular fibrillation; I47.2 Ventricular tachycardia; I25.5 Ischemic cardiomyopathy; M19.90 Unspecified osteoarthritis, unspecified site; F17.210 Nicotine dependence, cigarettes, uncomplicated; I25.10 Atherosclerotic heart disease of native coronary artery without angina pectoris; E78.5 Hyperlipidemia, unspecified; F10.20 Alcohol dependence, uncomplicated; Y90.9 Presence of alcohol in blood, level not specified; I08.3 Combined rheumatic disorders of mitral, aortic and tricuspid valves; Z88.0 Allergy status to penicillin; Z82.49 Family history of ischemic heart disease and other diseases of the circulatory system; Z23 Encounter for immunization; I49.3 Ventricular premature depolarization; G89.29 Other chronic pain; M54.9 Dorsalgia, unspecified; I11.9 Hypertensive heart disease without heart failure; X58.XXXA Exposure to other specified factors, initial encounter; Y92.239 Unspecified place in hospital as the place of occurrence of the external cause
CPT/HCPCS: 36415; 71045; 71111; 71120; 80048; 80053; 80061; 82550; 82553; 83036; 83605; 83721; 83880; 84484; 85025; 85347; 85610; 85730; 87641; 90732; 93005; 93306; 99156; 99157; 99284; 99406; A9270-GY; C1725; C1769; C1876; C1887; C8929; C9606-LC; J0282; J1644; J1940; J2250; J2270; J3010; J3475

== ENCOUNTER 2021-08-28 18:00 | Observation (INO) ==
[2021-08-28 18:26] LABS: ABS Basophils 0.1 10^3/ul (0-0.2); ABS Eosinophils 0.1 10^3/ul (0-0.6); ABS Lymphocytes 1.5 10^3/ul (1.0-4.8); ABS Monocytes 0.9 10^3/ul (0-0.8); ABS Neutrophils 6.5 10^3/ul (1.5-7.7); Eosinophil % 1.4 %; Hematocrit 36 % (42-52); Hemoglobin 12.8 g/dL (14.0-18.0); Lymphocyte % 16.5 %; Mean Corpuscular HGB Conc 36 g/dL (31-36); Mean Corpuscular Hemoglobin 35 pg (27-31); Mean Corpuscular Volume 97 fL (80-94); Mean Platelet Volume 7.4 fL (7.4-10.4); Nucleated Red Blood Cells % 0.1; Platelet Count 265 10^3/uL (150-450); Red Blood Count 3.68 10^6 /uL (4.18-5.48); Red Cell Distribution Width 13 % (10-15); White Blood Count 9.1 10^3/uL (3.5-10.8)
[2021-08-28 18:35] LABS: INR 0.91 (0.86-1.15)
[2021-08-28 18:42] LABS: Albumin 4.4 g/dL (3.2-5.2); Albumin/Globulin Ratio 1.6 (1-3); Globulin 2.8 g/dL (2-4); Total Bilirubin 0.5 mg/dL (0.2-1.0); Total Protein 7.2 g/dL (6.4-8.9); eGFR CKD-EPI 106.3 (>60)
[2021-08-28 18:46] LABS: Potassium 3.9 mmol/L (3.5-5.0)
[2021-08-28] MEDS ORDERED: oxyCODONE/Acetamin 5/325 mg TAB PO ONE (23:29)
[2021-08-28] MEDS ORDERED: Albuterol HFA INHALER 8 gm MDI INH PRN (23:57)
[2021-08-29] MEDS ORDERED: Iohexol 350 (CONTRAST) 500 ML MDV IV ONE (00:21)
[2021-08-29 05:24] LABS: ABS Eosinophils 0.1 10^3/ul (0-0.6); ABS Lymphocytes 1.8 10^3/ul (1.0-4.8); ABS Monocytes 0.8 10^3/ul (0-0.8); Eosinophil % 2.5 %; Hematocrit 32 % (42-52); Hemoglobin 11.3 g/dL (14.0-18.0); Lymphocyte % 30.7 %; Mean Corpuscular HGB Conc 35 g/dL (31-36); Mean Corpuscular Hemoglobin 34 pg (27-31); Mean Corpuscular Volume 99 fL (80-94); Mean Platelet Volume 7.4 fL (7.4-10.4); Nucleated Red Blood Cells % 0.1; Platelet Count 215 10^3/uL (150-450); Red Blood Count 3.27 10^6 /uL (4.18-5.48); Red Cell Distribution Width 13 % (10-15); White Blood Count 5.8 10^3/uL (3.5-10.8)
[2021-08-29 05:39] LABS: Calcium 8.7 mg/dL (8.6-10.3); Potassium 3.7 mmol/L (3.5-5.0)
[2021-08-29 05:45] LABS: HDL Cholesterol 31.1 mg/dL; eGFR CKD-EPI 108.7 (>60)
[2021-08-29] MEDS ORDERED: Heparin 5000 UNITS/ML 1 mL VIAL SUBCUT SCH (06:00)
[2021-08-29 06:16] LABS: Activated Partial Thrombo Time 28.1 seconds (26.0-38.0); INR 0.91 (0.86-1.15)
[2021-08-29] MEDS ORDERED: SPIRIVA Respimat (tiotropium) 2.5 mcg/inh Inhaler INH SCH (09:00)
[2021-08-29] MEDS ORDERED: ICOSAPENT ETHYL 1 GM CAPSULE (NF) PO SCH (09:00)
[2021-08-29] MEDS ORDERED: Multivitamins/Minerals TAB PO SCH (09:00)
[2021-08-29] MEDS ORDERED: Aspirin EC 81 mg TAB.EC (enteric coated) PO SCH (09:00)
[2021-08-29] MEDS ORDERED: CMC:Ticagrelor 60 mg TAB (NF) PO SCH (09:00)
[2021-08-29 10:25] LABS: Folate 18.76 ng/mL (5.90-24.80)
[2021-08-29] MEDS ORDERED: Regadenoson 0.4 MG/5 ML SYRINGE ONE (11:49)
[2021-08-29] MEDS ORDERED: Aminophylline 25 MG/ML VIAL ONE (11:49)
[2021-08-29 11:54] VITALS: BP 134/61
[2021-08-29] MEDS ORDERED: PTO: ICOSAPENT ETHYL 1 GM CAPSULE (NF) PO SCH (12:00)
[2021-08-29] MEDS ORDERED: Enoxaparin 40 MG/0.4 ML SYR SUBCUT SCH (14:00)
== END 2021-08-29 15:00 | disposition home or self-care (01) ==
LOC: ED 18:00 → EDHOLD 18:00 → SUATTDRO 23:45 → MEDTELE 08-29 02:58
PROVIDERS: ADMIT Internal Medicine; ATTEND Hospitalist